=== PATIENT | male | born 1990 | race Caucasian/White ===

== ENCOUNTER → 2021-01-30 13:00 | Outpatient (CLI) | payer OTHER, SELFPAY ==
[2021-01-31 10:55] LABS: COVID19 Sendout Not Detected (Not Detect)
== END ==
PROVIDERS: Visit Provider Physician Assistant
DX: Z20.822 Contact with and (suspected) exposure to COVID-19 (principal)
CPT/HCPCS: 87635

== ENCOUNTER → 2022-07-19 14:21 | Outpatient (CLI) | payer OTHER, SELFPAY ==
[2022-07-19 15:19] LABS: Influenza A - CEPHEID Flu A NEGATIVE (NEGATIVE); Influenza B - CEPHEID Flu B NEGATIVE (NEGATIVE); Respiratory Syncytial Virus Negative (Negative)
[2022-07-19 15:20] LABS: COVID-19 CEPHEID 4-PLEX PCR Negative (Negative)
== END ==
PROVIDERS: Visit Provider Student in an Organized Health Care Education/Training Program
DX: R05.9 Cough, unspecified (principal); J02.9 Acute pharyngitis, unspecified
CPT/HCPCS: 0241U; 87070

== ENCOUNTER 2023-07-14 16:48 | Emergency (ER) | payer OTHER, MEDICAID, SELFPAY ==
[2023-07-14 16:58] VITALS: BP 133/80; PULSE 73; RESP 18; TEMP 36.9; O2SAT 100; BMI 26.6
[2023-07-14 19:20] VITALS: PULSE 76; O2SAT 100
[2023-07-14 19:22] VITALS: BP 143/81; PULSE 87; O2SAT 100
[2023-07-14 19:30] VITALS: BP 133/77; PULSE 72; O2SAT 100
[2023-07-14 19:35] VITALS: BP 127/77; BP 139/83; BP 156/87; PULSE 67; PULSE 72; PULSE 80
--- NOTE | 2023-07-14 19:37 | PC.NURSE ---
Pt states that he has had this happen previously related to ETOH and THC use
[2023-07-14 19:47] LABS: INR 1.1 (0.9-1.3); Prothrombin Time 12.4 SECONDS (9.4-12.5)
[2023-07-14 19:50] LABS: Add Manual Diff / Slide Review NO; Basophils Absolute Auto 100 /uL (0-100); Basophils Percent Auto 0.6 % (0-2); Eosinophils Absolute Auto 100 /uL (0-450); Eosinophils Percent Auto 0.6 % (2-4); Hematocrit 42.7 % (41-53); Hemoglobin 14.5 g/dL (13.5-17.5); Lymphocytes Absolute Auto 2800 /uL (1100-4500); Lymphocytes Percent Auto 28.4 % (25-40); Mean Corpuscular Hemoglobin 30.6 PG (26-34); Monocytes Absolute Auto 600 /uL (0-900); Monocytes Percent Auto 5.6 % (3-14); Neutrophils Absolute Auto 6400 /uL (1500-7000); Neutrophils Percent Auto 64.8 % (50-75); PTT Partial Thromboplastin Tim 36 SECONDS (25.1-36.5); Platelet Count 289 X10^3/uL (150-400); Red Blood Cell Count 4.75 X10^6/uL (4.5-5.9); Red Cell Distribution Width 12.7 % (11.6-14.8); White Blood Cell Count 9.8 X10^3/uL (4.5-11.0)
--- NOTE | 2023-07-14 19:51 | ED_ITS ---
HPI - Syncope General Chief Complaint: Syncope Stated Complaint: hx of fainting Time Seen by Provider: 07/14/23 19:23 Source: patient Mode of arrival: Ambulatory Limitations: no limitations History of Present Illness HPI narrative: 33-year-old male with no reported past medical history presents for syncopal episode earlier this morning. Patient states that he got out of bed quickly to go use the restroom when he felt lightheaded, felt a ringing in his ears, had tunnel vision, and passed out. Patient reports similar episode in April, however he attributed it to the fact that he was smoking weed every day and drinking too much alcohol. 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, so he became concerned that this syncopal episode and family prompted him to come for evaluation Related Data Previous Rx's Medication Instructions Recorded benzonatate 100 mg capsule 100 mg PO TID PRN cough #21 caps 07/19/22 Allergies Allergy/AdvReac Type Severity Reaction Status Date / Time No Known Drug Allergies Allergy Verified 07/14/23 16:58 Review of Systems Review of Systems Narrative: Negative except as noted above Patient History Social History Smoking Status: Former smoker Smoking Status: Former smoker Substance Use Type: does not use Exam Initial Vital Signs Initial Vital Signs: Vital Signs Temperature 98.5 F 07/14/23 16:58 Pulse Rate 73 07/14/23 16:58 Respiratory Rate 18 07/14/23 16:58 Blood Pressure 133/80 07/14/23 16:58 Pulse Oximetry 100 07/14/23 16:58 Oxygen Delivery Method Room Air 07/14/23 16:58 Const: Awake, alert, no acute distress, nontoxic appearing Cardiac: regular rate, regular rhythm RESP: unlabored, clear bilaterally, no wheezing GI: Soft, nontender, nondistended, no rebound, no guarding MSK: Atraumatic, full range of motion, pulses equal Skin: Warm, Dry, intact, no rashes Neuro: AO x3, CN II-XII grossly intact, moves all extremities Course Orders Ordered: ED Orders 07/14/23 17:14 EKG-12 Lead Stat 07/14/23 19:30 Complete Blood Count AUTO DIFF Stat Comprehensive Metabolic Panel Stat Lipase Stat Magnesium Stat PTT Partial Thromboplastin Devan Stat Prothrombin Time INR Stat Vital Signs Vital signs: Vital Signs - 8 hr 07/14/23 16:58 07/14/23 19:20 07/14/23 19:22 Temperature 98.5 F Pulse Rate 73 76 Pulse Rate [Orthostatic Lying] Pulse Rate [Orthostatic Sitting] Pulse Rate [Orthostatic Standing] Respiratory Rate 18 Blood Pressure 133/80 143/81 H Blood Pressure [Orthostatic Lying] Blood Pressure [Orthostatic Sitting] Blood Pressure [Orthostatic Standing] Pulse Oximetry 100 100 Oxygen Delivery Method Room Air Room Air 07/14/23 19:22 07/14/23 19:30 07/14/23 19:30 Temperature Pulse Rate 87 72 Pulse Rate [Orthostatic Lying] Pulse Rate [Orthostatic Sitting] Pulse Rate [Orthostatic Standing] Respiratory Rate Blood Pressure 133/77 Blood Pressure [Orthostatic Lying] Blood Pressure [Orthostatic Sitting] Blood Pressure [Orthostatic Standing] Pulse Oximetry 100 100 Oxygen Delivery Method Room Air Room Air 07/14/23 19:35 Temperature Pulse Rate Pulse Rate [Orthostatic Lying] 67 Pulse Rate [Orthostatic Sitting] 80 Pulse Rate [Orthostatic Standing] 72 Respiratory Rate Blood Pressure Blood Pressure [Orthostatic Lying] 127/77 Blood Pressure [Orthostatic Sitting] 156/87 H Blood Pressure [Orthostatic Standing] 139/83 Pulse Oximetry Oxygen Delivery Method MDM - Syncope Differential Diagnosis Differential diagnosis: Likely syncope due to orthostatic hypotension, vasovagal syncope and complete atrioventricular block Lab Data 07/14/23 19:30 07/14/23 19:30 Labs: Lab Results 07/14/23 Range/Units 19:30 WBC 9.8 (4.5-11.0) X10^3/uL RBC 4.75 (4.5-5.9) X10^6/uL Hgb 14.5 (13.5-17.5) g/dL Hct 42.7 (41-53) % MCV 90.0 (80-100) fL MCH 30.6 (26-34) PG MCHC 34.0 (30-36) % RDW 12.7 (11.6-14.8) % Plt Count 289 (150-400) X10^3/uL Neut % (Auto) 64.8 (50-75) % Lymph % (Auto) 28.4 (25-40) % [place] % (Auto) 5.6 (3-14) % Eos % (Auto) 0.6 L (2-4) % Baso % (Auto) 0.6 (0-2) % Neut # (Auto) 6400 (4301-5453) /uL Lymph # (Auto) 2800 (3321-1811) /uL [place] # (Auto) 600 (0-900) /uL Eos # (Auto) 100 (0-450) /uL Baso # (Auto) 100 (0-100) /uL PT 12.4 (9.4-12.5) SECONDS INR 1.1 (0.9-1.3) APTT 36 (25.1-36.5) SECONDS Sodium 140 (137-145) mmol/L Potassium 4.0 (3.4-5.1) mmol/L Chloride 106 (98-107) mmol/L Carbon Dioxide 27 (22-32) mmol/L BUN 14 (9-20) mg/dL Creatinine 0.87 (0.66-1.25) mg/dL Estimated GFR > 60 (>60) mL/min BUN/Creatinine Ratio 16.1 (6-22) Glucose 98 (70-100) mg/dL Calcium 9.4 (8.4-10.2) mg/dL Magnesium 2.0 (1.6-2.3) mg/dL Total Bilirubin 0.8 (0.2-1.3) mg/dL AST 30 (17-59) IU/L ALT 23 (<50) IU/L Alkaline Phosphatase 54 (38-126) U/L Total Protein 7.5 (6.3-8.2) g/dL Albumin 4.3 (3.5-5.0) g/dL Globulin 3.2 (1.7-4.1) g/dL Albumin/Globulin Ratio 1.3 (1.0-2.8) Lipase 78 (23-300) U/L [facility] Narrative Medical decision making narrative: Well-appearing patient with history that is consistent with orthostatic syncope. While patient was getting orthostatic vitals he said he felt similar to when he passed out at home, but not as badly. Patient counseled on going slowly when changing positions to avoid recurrent episodes of syncope. EKG normal sinus rhythm without concerning findings. Offered blood work, which patient stated he wanted, but he requested to leave prior to getting lab results because the last [place] to [place] leaves at 8:30 p.m. and there are no available hotels tonight. Patient counseled to check his patient portal for results, and we will call if there are any significant abnormalities. Discharge Plan Departure Patient Disposition: Home Clinical Impression: Syncope Instructions: DI for Syncope in Adults (Fainting) Activity Restrictions/Additional Instructions: We do not have your laboratory work resulted at the time of discharge, so that you can make the last ferry. If anything is abnormal we will call you, otherwise you may check your results on your patient portal. Please follow up with the primary care physician. Congruent on stopping drinking and smoking Prescriptions: No Action benzonatate 100 mg capsule 100 mg PO TID PRN (Reason: cough) Qty: 21 1RF Referrals: Miscellaneous,Doctor, MD [Primary Care Provider] - Stand Alone Forms: Patient Portal/API
[2023-07-14 19:56] LABS: Alanine Aminotransferase 23 IU/L (<50); Albumin 4.3 g/dL (3.5-5.0); Albumin Globulin Ratio 1.3 (1.0-2.8); Alkaline Phosphatase 54 U/L (38-126); Aspartate Aminotransferase 30 IU/L (17-59); BUN Creatinine Ratio 16.1 (6-22); Bilirubin Total 0.8 mg/dL (0.2-1.3); Blood Urea Nitrogen 14 mg/dL (9-20); Calcium 9.4 mg/dL (8.4-10.2); Carbon Dioxide 27 mmol/L (22-32); Chloride 106 mmol/L (98-107); Estimated Glomerular Filt Rate > 60 mL/min (>60); Globulin 3.2 g/dL (1.7-4.1); Glucose 98 mg/dL (70-100); HEMOLYSIS 43 (0-50); Lipase 78 U/L (23-300); Sodium 140 mmol/L (137-145); Total Protein 7.5 g/dL (6.3-8.2)
== END 2023-07-14 20:01 | disposition home or self-care (01) ==
PROVIDERS: Emergency Provider Emergency Medicine
DX: R55 Syncope and collapse (principal); R07.9 Chest pain, unspecified
CPT/HCPCS: 36415; 80053; 83690; 83735; 85025; 85610; 85730; 93005; 93010; 99283; 99284

== ENCOUNTER 2024-06-03 15:37 | Emergency (ER) | payer SELFPAY ==
[2024-06-03 15:38] VITALS: BP 134/90; PULSE 67; RESP 16; TEMP 37.1; O2SAT 100; BMI 28.0
[2024-06-03 15:43] VITALS: PULSE 66; O2SAT 100
[2024-06-03 15:44] VITALS: BP 139/90; PULSE 72; RESP 19; O2SAT 100
--- NOTE | 2024-06-03 15:53 | EKG_ITS ---
[address] [address] [address] [address] Test Date: 2024-06-03 Pat Name: Param Naylor Department: Room: Gender: Male Scene Shifter: DOUG : 1990 Requested By: Order Number: [id number] Reading MD: Pedro Adkins MD Measurements Intervals [place] Rate: 65 P: 48 MS: 156 QRS: 62 QRSD: 90 T: 46 QT: 386 QTc: 401 Interpretive Statements Normal sinus rhythm Electronically Signed On 06-04-2024 12:58:45 PST by Pedro Adkins MD
--- NOTE | 2024-06-03 15:53 | DI.RAD.S_ITS ---
PROCEDURE: XR CHEST 1V INDICATIONS: chest pain TECHNIQUE: One view of the chest was acquired. COMPARISON: None. FINDINGS: Surgical changes and devices: None. Lungs and pleura: Lungs are clear. No pleural effusions or pneumothorax. Mediastinum: Mediastinal contours appear normal. Heart size is normal. Bones and chest wall: No suspicious bony lesions. Overlying soft tissues appear unremarkable. IMPRESSION: No acute cardiopulmonary abnormality is seen. Dictated by: Ino Hudson M.D. on 06/03/2024 at 15:12 Approved by: Ino Hudson M.D. on 06/03/2024 at 15:12
[2024-06-03 16:00] VITALS: PULSE 64; RESP 16; O2SAT 98
[2024-06-03 16:01] VITALS: BP 126/73; PULSE 67; RESP 15; O2SAT 97
[2024-06-03 16:02] LABS: Add Manual Diff / Slide Review NO; Basophils Absolute Auto 0 /uL (0-100); Basophils Percent Auto 0.7 % (0-2); Eosinophils Absolute Auto 0 /uL (0-450); Eosinophils Percent Auto 0.5 % (2-4); Hematocrit 42.4 % (41-53); Hemoglobin 14.4 g/dL (13.5-17.5); Lymphocytes Absolute Auto 1900 /uL (1100-4500); Lymphocytes Percent Auto 46.9 % (25-40); Mean Corpuscular Hemoglobin 30.2 PG (26-34); Monocytes Absolute Auto 400 /uL (0-900); Monocytes Percent Auto 10.3 % (3-14); Neutrophils Absolute Auto 1700 /uL (1500-7000); Neutrophils Percent Auto 41.6 % (50-75); Platelet Count 171 X10^3/uL (150-400); Red Blood Cell Count 4.76 X10^6/uL (4.5-5.9); Red Cell Distribution Width 13.3 % (11.6-14.8)
[2024-06-03 16:10] LABS: Prothrombin Time 11.2 SECONDS (9.4-12.5)
[2024-06-03 16:12] LABS: PTT Partial Thromboplastin Tim 35 SECONDS (25.1-36.5)
[2024-06-03 16:17] LABS: Alanine Aminotransferase 22 IU/L (<50); Albumin 4.4 g/dL (3.5-5.0); Albumin Globulin Ratio 1.5 (1.0-2.8); Alkaline Phosphatase 50 U/L (38-126); Aspartate Aminotransferase 31 IU/L (17-59); BUN Creatinine Ratio 15.6 (6-22); Bilirubin Total 0.4 mg/dL (0.2-1.3); Blood Urea Nitrogen 12 mg/dL (9-20); Calcium 8.7 mg/dL (8.4-10.2); Carbon Dioxide 28 mmol/L (22-32); Chloride 107 mmol/L (98-107); Creatine Kinase 126 U/L (55-170); Estimated Glomerular Filt Rate > 60 mL/min (>60); Globulin 2.9 g/dL (1.7-4.1); Glucose 102 mg/dL (70-100); HEMOLYSIS < 15 (0-50); Lipase 89 U/L (23-300); Magnesium 2.1 mg/dL (1.6-2.3); Sodium 143 mmol/L (137-145); Total Protein 7.3 g/dL (6.3-8.2)
[2024-06-03 16:28] LABS: NT-proBNP (BNP-Adult 18+) < 20 pg/mL (<125); Troponin I < 0.012 ng/mL (0.01-0.034)
[2024-06-03 16:30] VITALS: BP 129/91; PULSE 67; RESP 20; O2SAT 99
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
== END 2024-06-03 17:01 | disposition home or self-care (01) ==
PROVIDERS: Emergency Provider Emergency Medicine; PCP Family Medicine
DX: R55 Syncope and collapse (principal); S09.8XXA Other specified injuries of head, initial encounter; W18.30XA Fall on same level, unspecified, initial encounter
CPT/HCPCS: 36415; 71045; 80053; 82550; 83690; 83735; 83880; 84484; 85025; 85610; 85730; 93005; 93010; 99283; 99284

== ENCOUNTER → 2024-10-17 12:08 | Outpatient (CLI) | payer BC, SELFPAY ==
--- NOTE | 2024-10-17 12:10 | DI.ECHO.S_ITS ---
[facility]---------+ [facility] : : [address] : : [place] : : [id number] : : Phone: [phone] Echocardiogram Report + + :Name: CARMEN EASLEY Study Date: 10/17/2024 Height: 69 in : :[facility] ReadingLocation: Weight: 187 lb : : Gender: Male BSA: 2.0 m2 : :: 1990 Age: 34 yrs BP: 119/76 mmHg: :Reason For Study: SYNCOPE AND COLLAPSE : :Ordering Physician: DEBORAH GARCIA Performed By: Holly Saleh : :Referring: DEBORAH GARCIA : + + Interpretation Summary Normal biventricular function without significant valvular abnormalities. Procedure: A two-dimensional transthoracic echocardiogram with color flow and Doppler was performed. The study quality was technically adequate. There is no prior echocardiogram noted for this patient. The patient was in sinus bradycardia with heart rates between 54-59 bpm during the exam. Left Ventricle: The left ventricle is normal in size and wall thickness. The ejection fraction is estimated to be 60-65%. Diastolic parameters suggest probable normal left ventricular diastolic function and normal filling pressures. Right Ventricle: The right ventricle is normal in size and function. Atria: The left atrial size is normal. The right atrium is normal in size. There is no Doppler evidence for an interatrial shunt. Mitral Valve: The mitral valve leaflets appear to open well. There is trace mitral regurgitation. Aortic Valve: The aortic valve is trileaflet. The aortic valve opens well. There is no aortic valve stenosis. No aortic regurgitation is present. Tricuspid Valve: The tricuspid valve leaflets are thin and pliable. There is trace tricuspid regurgitation. The right ventricular systolic pressure is estimated to be at least 25 mmHg based on an estimated right atrial pressure of 3 mm Hg. Pulmonic Valve: The pulmonic valve leaflets are thin and pliable; valve motion is normal. There is no pulmonic valvular regurgitation. Great Vessels: The aortic root is normal size. The dimensions of the ascending aorta are normal. The IVC is of normal diameter and collapses greater than 50% with a sniff. This suggests a low right atrial pressure of 3 mm Hg. Pericardium/ Pleura There is no pericardial effusion. There is no pleural effusion. MMode/2D Measurements & Calculations LVIDd: 5.1 cm LVOT diam: 2.1 cm LVIDs: 3.4 cm Ao root diam: 3.5 cm FS: 32.1 % asc Aorta Diam: 3.1 cm IVSd: 0.80 cm Ao Arch Diam (Prox Trans): 2.4 cm LVPWd: 0.87 cm LV miller. diameter/BSA (cm/m^2): 2.5 LV sys. diameter/BSA (cm/m^2): 1.7 LA A2 area: 15.5 cm2 RA long axis: 5.6 cm LA A4 area: 18.5 cm2 RA area: 20.2 cm2 LA length (vol): 5.2 cm RA vol: 61.3 ml LA vol: 46.5 ml RA : 30.6 ml/m2 LA vol index: 23.1 ml/m2 IVC diam: 2.0 cm RVD1 (basal): 3.9 cm RVD2 (mid): 4.3 cm TAPSE: 2.0 cm Doppler Measurements & Calculations Ao V2 max: 122.4 cm/sec LVOT Max Toi: 107.6 cm/sec Ao V2 mean: 81.4 cm/sec LV V1 max P.6 mmHg Ao max P.0 mmHg LV V1 VTI: 22.6 cm Ao mean P.0 mmHg TWIN(I,D): 3.4 cm2 Ao V2 VTI: 23.6 cm TWIN(V,D): 3.1 cm2 sev ratio: 0.96 TWIN indexed to BSA (cm^2/m^2): 1.7 MV E max toi: 93.6 cm/sec TR max toi: 234.3 cm/sec MV A max toi: 48.5 cm/sec TR max P.0 mmHg MV E/A: 1.9 PA V2 max: 94.8 cm/sec Med Peak E' Toi: 12.3 cm/sec PA V2 mean: 64.0 cm/sec E/E' med: 7.6 PA mean P.9 mmHg Lat Peak E' Toi: 17.7 cm/sec PA pr(Accel): 20.3 mmHg E/E' lat: 5.3 E/e' average: 6.5 MV dec time: 0.19 sec Pulm A Revs Toi: 26.5 cm/sec SV(LVOT): 80.6 ml Pulm A Revs Dur: 0.07 sec Reading Physician:JAJA
--- NOTE | 2024-10-17 16:54 | DI.NM.S_ITS ---
DATE OF SERVICE: 10/17/2024 EXERCISE STRESS TEST INDICATIONS: History of dizziness, syncope, exercise stress test. CARDIAC STRESS: The patient underwent exercise stress test under the supervision of an attending staff. The patient walked on Artemio protocol for about 11 minutes and 27 seconds. Achieved 12.8 METS of workload, 98% of target heart rate with maximum heart rate 181 with normal blood pressure response. Peak blood pressure 170/90. ZITA positive 11%. Baseline rhythm sinus with mild sinus bradycardia with repolarization changes. During stress, no obvious convincing ischemic changes seen. At rest, there was right axis as well. No significant arrhythmias during stress. Normal recovery. No chest pain. Had some shortness of breath. CONCLUSION: Exercise stress test is negative for inducible ischemia. 12.8 METS of workload. Normal hemodynamic response. No ischemic EKG changes. No chest pain. Had some shortness of breath. Overall, low- risk exercise stress test. CyndyParam - ARGELIA/rachana/NITIN doc#: [id number]/job#: [id number] dd: 10/17/2024 16:40:00 dt: 10/17/2024 16:47:00 DICTATING /COPIES TO: Brit Osman MD COPIES MNE: DORA;
== END ==
LOC: ECHO 12:09
PROVIDERS: PCP Family Medicine; Referring Provider Internal Medicine; Visit Provider Internal Medicine
DX: R55 Syncope and collapse (principal)
CPT/HCPCS: 93017; 93306